=== PATIENT | female | born 1955 | race Caucasian/White ===

== ENCOUNTER 2018-05-21 21:11 | Emergency (ER) | payer OTHER ==
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
[2018-05-21] MEDS ORDERED: IBUPROFEN 200 MG TAB PO ONE (22:22)
[2018-05-21 22:31] VITALS: BP 108/72
== END 2018-05-21 22:45 | disposition home or self-care (01) ==
LOC: EDUNIT#
DX: S80.02XA Contusion of left knee, initial encounter (principal); M25.552 Pain in left hip; M79.652 Pain in left thigh; V03.10XA Pedestrian on foot injured in collision with car, pick-up truck or van in traffic accident, initial encounter; Y92.410 Unspecified street and highway as the place of occurrence of the external cause

== ENCOUNTER → 2018-06-01 | Outpatient (CLI) | payer OTHER | LOC: FIMAGING 16:24 | PROVIDERS: ATTEND Orthopaedic Surgery | DX: S83.412A Sprain of medial collateral ligament of left knee, initial encounter (principal) ==

== ENCOUNTER → 2018-07-01 | Outpatient (CLI) | payer OTHER | LOC: FIMAGING 13:04 | PROVIDERS: ATTEND Orthopaedic Surgery | DX: M23.221 Derangement of posterior horn of medial meniscus due to old tear or injury, right knee (principal); M23.261 Derangement of other lateral meniscus due to old tear or injury, right knee; M71.21 Synovial cyst of popliteal space [Baker], right knee ==